=== PATIENT | female | born 1980 | race Caucasian/White ===

== ENCOUNTER 2018-11-12 06:45 | Inpatient (IN) | payer OTHER ==
[~2018-11-12] VITALS: Ht 177.8 cm; Wt 109.5 kg
[2018-11-12] VITALS (35 sets, daily range): BP systolic 95–155; BP diastolic 50–94; PULSE 47–86; TEMP 97.6–98.7
[~2018-11-12 06:45] MED LIST: MOTRIN 600600 MG/TAB PO; PRENATAL1 TA7 PO
--- NOTE | 2018-11-12 08:02 | NUR ---
0710 PATIENT HERE FOR INDUCTION. ASSESSMENT COMPLETED. EFM ON FHT 120'S GOOD ACCELERATIONS, BABY VERY ACTIVE. IV STARTED IN LEFT FOREARM, LR HUNG AND BLOOD DRAWN AND SENT TO LAB.
[2018-11-12 08:07] LABS: BASO % 0.2 % (0.0-2.0); EOS % 0.3 % (0-4.0); GRAN # 6.9 (1.4-6.5); GRAN % 71.3 % (42.2-75.2); HEMATOCRIT 38.6 % (37.0-47.0); HEMOGLOBIN 12.8 g/dl (12.5-16.0); LYMPH # 1.9 (1.2-3.4); LYMPH % 19.4 % (20.0-51.0); MEAN CELL VOLUME 86 fl (80.0-100.0); MEAN CORPUSCULAR HEMOGLOBIN 29 pg (27.0-31.0); MEAN CORPUSCULAR HGB CONC 33 g/dl (33.0-37.0); MEAN PLATELET VOLUME 10.4 fl (7.4-10.4); MONO # 0.8 (0.1-0.6); MONO % 8.2 % (1.7-9.3); PLATELET COUNT 181 K/mm3 (130-400); RED BLOOD COUNT 4.47 M/mm3 (4.10-5.30); REDCELL DISTRIBUTION WIDTH-CV 14.6 % (11.5-14.5)
--- NOTE | 2018-11-12 09:04 | NUR ---
0900 DR AGARWAL AT BEDSIDE. SVE /-3 AROM WITH AMNIOHOOK. CLEAR FLUID NOTED. SCALP ELECTRODE PLACED.
--- NOTE | 2018-11-12 11:33 | NUR ---
1050 PATIENT READY FOR EPIDURAL. Kathrine RAWLS WORLD DESIGNER AT BEDSIDE. PATIENT SITS UP ON EDGE OF BED. EPIDURAL PLACED. PAATIENT TOLERATES WELL. SEE WORLD DESIGNER NOTES FOR QUESTIONS.
--- NOTE | 2018-11-12 11:54 | NUR ---
1115 BP 97/52, FHT DECREASED TO VARIABLES NOTED. PATIENT REPOSTIONED AND EPHEDRINE 10 MG GIVEN FOR LOW BP.
--- NOTE | 2018-11-12 11:57 | NUR ---
1130 BP 95/50 EPHEDRINE 10 MG IV GIVEN.
--- NOTE | 2018-11-12 12:00 | NUR ---
1145 DR AGAWRAL CALLED AND NOTIFIED OF FHT BASELINE CHANGE AND SVE 2. NO NEW ORDERS AT THIE TIME
--- NOTE | 2018-11-12 13:22 | NUR ---
1315 DR AGARWAL CALLED AND UPDATED ON SVE 2. WILL HEAD TO HOSPITAL.
--- NOTE | 2018-11-12 14:30 | NUR ---
1330 FHT 108 AND DECREASED TO 70-80 FOR 14 MIN. PITOCIN OFF, PATIENT REPOSITIONED TO HIGH LEFT FROM RIGHT, AND THEN TO KNEE CHEST PODITION. O2 10L/MASK. SVE 1NT LIP. DR AGARWAL CALLED TO COME TO HOSPITAL NOW. [address] TO LEFT SIDE. DR AGARWAL HERE. SVE COMPLETE WILL PUSH WITH EACH CONTRACTION. 1348 BABY GIRL BORN VIA BY DR AGARWAL. CORD CLAMPED AND CUT BY DR AGARWAL AND FATHER. BABY TO MOMS CHEST FOR SKIN TO SKIN. 1350 PLACENTA DELIVERED AT THIS TIME. PITOCIN STARTED AT 333/HR PER PROTOCOL. FUNDUS FIRM BUT LARGE AMOUNT OF BLEEDING NOTED. FUNDUS MASSAGED UNTIL FIRM. 1400 METHERGINE 10 MG IM IN LEFT THIGH. FUNDUS FIRM, BLEEDING MODERATE. SMALL REPAIR DONE BY DR AGARWAL. PATIENT TOLERATES WELL/
[2018-11-13 07:30] VITALS: BP 121/66; PULSE 81; TEMP 97.8
[2018-11-13] MEDS ORDERED: IBU600 MG PO (08:35)
--- NOTE | 2018-11-13 09:15 | NUR ---
Initial visit; Mom thanked Merchandise Supervisor for offering congratulations and God's blessings for the of her daughter. Merchandise Supervisor thanked family for choosing [facility].
[2018-11-13 16:35] VITALS: BP 136/71; PULSE 70; TEMP 97.4
== END 2018-11-13 17:40 | disposition home or self-care (01) | DRG 768 ==
LOC: LDR 06:45 → OB 07:20
PROVIDERS: ADMIT Obstetrics & Gynecology
PROC: 10E0XZZ Delivery of Products of Conception, External Approach (ICD-10-PCS; principal; 2018-11-12)
PROC: 0UQJXZZ Repair Clitoris, External Approach (ICD-10-PCS; 2018-11-12)
PROC: 3E033VJ Introduction of Other Hormone into Peripheral Vein, Percutaneous Approach (ICD-10-PCS; 2018-11-12)
PROC: 10907ZC Drainage of Amniotic Fluid, Therapeutic from Products of Conception, Via Natural or Artificial Opening (ICD-10-PCS; 2018-11-12)
DX: O70.0 First degree perineal laceration during delivery (principal); Z37.0 Single live birth; Z3A.39 39 weeks gestation of pregnancy; O76 Abnormality in fetal heart rate and rhythm complicating labor and delivery; Z28.21 Immunization not carried out because of patient refusal; O75.89 Other specified complications of labor and delivery; O99.214 Obesity complicating childbirth
CPT/HCPCS: J2590; J2795; J7120